=== PATIENT | male | born 1945 | race Caucasian/White ===

== ENCOUNTER 2017-11-20 18:25 | Emergency (ER) | payer OTHER, MEDICARE ==
[~2017-11-20] VITALS: Ht 180.3 cm; Wt 72.8 kg
[2017-11-20 18:26] VITALS: BP 169/104
[2017-11-20] MEDS ORDERED: HYDROcodone/APAP 5/325 TABLET PO STA (20:08)
[2017-11-20] MEDS ORDERED: HYDROcodone/APAP 5/325 TABLET ONE (20:14)
[2017-11-20] MEDS ORDERED: PLEASE ENTER ALLERGIES MC SCH (20:30)
== END 2017-11-20 20:40 | disposition home or self-care (01) ==
LOC: ED 20:34
DX: S42.034A Nondisplaced fracture of lateral end of right clavicle, initial encounter for closed fracture (principal); I10 Essential (primary) hypertension; W01.0XXA Fall on same level from slipping, tripping and stumbling without subsequent striking against object, initial encounter; Y93.89 Activity, other specified; Y99.8 Other external cause status; Y92.89 Other specified places as the place of occurrence of the external cause
CPT/HCPCS: 72050; 99284

== ENCOUNTER 2019-02-28 08:16 | Outpatient (CLI) | payer MEDICARE | END 2019-02-28 23:59 | disposition home or self-care (01) | LOC: CFH 08:16 | PROVIDERS: ATTEND Physician Assistant Medical | DX: I49.3 Ventricular premature depolarization (principal); R06.00 Dyspnea, unspecified | CPT/HCPCS: 78452; 93017; A9502; J2785 ==